=== PATIENT | female | born 1955 | race Caucasian/White ===

== ENCOUNTER 2021-10-19 17:27 | Inpatient (IN) | payer MEDICAID, SELFPAY ==
[2021-10-19] VITALS (11 sets, daily range): BP systolic 112–164; BP diastolic 61–84; PULSE 59–100; RESP 12–20; TEMP 36.3–43; O2SAT 93–97; BMI 26.6; BMI 25.4
--- NOTE | 2021-10-19 17:21 | PC.NURSE ---
EMS reports pt had 100mcg Fentanyl in route to ED
--- NOTE | 2021-10-19 17:26 | XR_ITS ---
PROCEDURE INFORMATION: Exam: XR Left Hip Exam date and time: 10/19/2021 5:26 PM Age: 66 years old Clinical indication: Injury or trauma; Fall; Blunt trauma (contusions or hematomas); Left; Hip; Injury date: 10/19/2021; Additional info: Trauma/fall/left hip pain TECHNIQUE: Imaging protocol: XR Left hip. Views: 2 or 3 views hip with pelvis when performed. Total images: 3 COMPARISON: No relevant prior studies available. FINDINGS: Bones/joints: Intertrochanteric fracture of the left proximal femur demonstrating about 10 mm anterior displacement of the distal fragment on the frog-leg lateral view, with slight posterior angulation and about 7 mm impaction at the anterolateral margin of the fracture interface. Greater trochanteric fracture fragment, displaced about 5 mm. No pelvic/acetabular fractures are identified. Suspect osteopenia. Soft tissues: No soft tissue abnormalities. IMPRESSION: 1. Intertrochanteric fracture of the left proximal femur as detailed above. 2. Mildly displaced greater trochanteric fracture component. 3. Suspect osteopenia.
--- NOTE | 2021-10-19 17:26 | XR_ITS ---
PROCEDURE INFORMATION: Exam: XR Chest Exam date and time: 10/19/2021 5:26 PM Age: 66 years old Clinical indication: Injury or trauma; Fall; Blunt trauma (contusions or hematomas); Injury date: 10/19/2021; Additional info: Fall/trauma/left hip pain TECHNIQUE: Imaging protocol: XR of the chest. Views: 1 view. Total images: 2 COMPARISON: No relevant prior studies available. FINDINGS: Lungs: Mild hyperexpansion and hyperlucency with mild diaphragmatic flattening suggesting possible COPD. Pulmonary vasculature grossly normal. No gross pulmonary infiltrates or edema pattern. Pleural spaces: No pleural effusion. No pneumothorax. Heart/Mediastinum: Heart size normal. No tracheal/mediastinal shift. Vasculature: Mild aortic ectasia/tortuosity. Bones/joints: No acute osseous abnormalities are identified. Osteopenia. IMPRESSION: 1. No acute thoracic process. 2. Suspect COPD.
--- NOTE | 2021-10-19 18:03 | PC.NURSE ---
speaking with ortho, Dr Lindsay, at this time
--- NOTE | 2021-10-19 18:07 | CT_ITS ---
PROCEDURE INFORMATION: Exam: CT Left Lower Extremity Without Contrast, Hip Exam date and time: 10/19/2021 6:07 PM Age: 66 years old Clinical indication: Injury or trauma; Fall; Fracture, traumatic; Closed fracture; Hip; Left; Additional info: Hip fracture TECHNIQUE: Imaging protocol: CT of the Left lower extremity without contrast was performed. Exam focused on the hip. 3D rendering (Not supervised by radiologist): MIP and/or 3D reconstructed images were created by the technologist. Total images: 725 Radiation optimization: All CT scans at this facility use at least one of these dose optimization techniques: automated exposure control; mA and/or kV adjustment per patient size (includes targeted exams where dose is matched to clinical indication); or iterative reconstruction. COMPARISON: CR XR HIP LT 2-3V W/PELVIS 10/19/2021 5:37 PM FINDINGS: Bones/joints: Intertrochanteric fracture of the left proximal femur. There is 8 mm impaction at the inferior medial margin of the fracture interface, with mild varus angulation and mild-moderate apex anterior angulation on the sagittal reconstructions. Greater trochanteric fragment demonstrates about 6 mm posterior displacement. Nondisplaced lesser trochanteric fracture component noted on the coronal reconstructions. No pelvic/acetabular fractures. The pubic symphysis and left SI joint demonstrates no evidence of traumatic diastasis, with minor osteoarthritic changes. Soft tissues: No soft tissue hematoma. Vasculature: No gross vascular abnormalities. Lymph nodes: No adenopathy. Urinary bladder: Visualized urinary bladder unremarkable. IMPRESSION: 1. Intertrochanteric fracture of the left proximal femur detailed above, with mildly displaced greater trochanteric fracture and nondisplaced lesser trochanteric fracture components. 2. No pelvic/acetabular fractures. 3. No soft tissue hematoma.
--- NOTE | 2021-10-19 18:09 | PC.NURSE ---
speaking with Dr Mcknight whom is covering for service.
--- NOTE | 2021-10-19 18:11 | PC.NURSE ---
Notified Unit Assistant of need for bed for admission.
--- NOTE | 2021-10-19 18:22 | [facility].EDFALL ---
ED Disposition Clinical Impression: Closed left hip fracture Qualifiers: Encounter type: initial encounter Qualified Code(s): S72.002A - Fracture of unspecified part of neck of left femur, initial encounter for closed fracture Disposition: Admitted As Inpatient Condition on Discharge: Fair Referrals: Martha Renee [Primary Care Provider] - - Critical Care Critical Care Time: No Attestation: On 10/19/21, the high probability of a clinically significant, sudden or life threatening deterioration of the following system(s) required my full and direct attention, intervention and personal management. The time I documented below is in addition to time spent performing reported procedures but includes the following listed in this critical care notation. Medical Decision Making - Medical Records Medical records reviewed: Yes: I reviewed the patient's medical records. - Tony Inquiry Pt receiving controlled substance: Yes Tony was queried for this patient: Yes Reference #:: [id number] Risks and benefits of using a controlled substance: were discussed with pt by me Vital Signs: 10/19/21 17:21 Temperature 98.1 F Temperature Source Oral Pulse Rate [Right Radial] 61 Respiratory Rate 12 Blood Pressure [Right Arm] 139/84 Blood Pressure Mean [Right Arm] 102 Blood Pressure Source [Right Arm] Automatic Cuff Blood Pressure Position [Right Arm] Sitting 02 Sat by Pulse Oximetry 97 Oxygen Delivery Method Room Air Orders (Tests/Meds): ED MEDICATIONS Discontinued Medications Generic Name Dose Route Start Last Admin Trade Name Freq PRN Reason Stop Dose Admin Hydromorphone HCl 1 mg 10/19/21 18:00 10/19/21 18:21 Hydromorphone 2mg/Ml Syringe IV 10/19/21 18:01 1 mg ONCE ONE Administration Ondansetron HCl 4 mg 10/19/21 18:16 10/19/21 18:21 Ondansetron 4mg/2ml Vial IV 10/19/21 18:17 4 mg ONCE ONE Administration ORDERS Category Date Time Status CT hip LT wo con Stat Cat Scan 10/19/21 18:07 Ordered Consult to Orthopedic Surgery [CONS] Stat Cons 10/19/21 18:07 Ordered Hip XR left minimum 2 views [XR hip LT 2-3V w/pelvis] Exams 10/19/21 17:26 Taken Stat XR chest portable Stat Exams 10/19/21 17:26 Taken BMP [Basic Metabolic Panel] Stat Lab 10/19/21 17:26 Ordered Complete Blood Count Auto Diff Stat Lab 10/19/21 17:25 Ordered PTT [Activated Partial Thrombo Time] Stat Lab 10/19/21 17:26 Ordered Prothrombin Time INR Stat Lab 10/19/21 17:26 Ordered Rapid PCR Covid and Flu A/B Stat Lab 10/19/21 17:26 Ordered - Radiology Data #1 Image(s): Hip Image Reviewed: Yes I reviewed the patient's radiology results, Yes I reviewed the patient's radiology image Intertrochanteric fracture of the left hip - Reevaluation(s) Time: 18:26 Reevaluation #1: Patient has evidence of left hip fracture. I did notify orthopedic surgery. They are reviewed the imaging. Requesting CT. Patient will be made n.p.o. Prep for surgery tonight. Patient admitted to the hospital afterwards. Medical Decision Narrative: 66-year-old female presented to the emergency department with some left hip pain after fall. There is concern for fracture. Patient provided analgesics. Imaging obtained. Fall HPI - General Chief Complaint: Fall Stated Complaint: Fall Time Seen by Provider: 10/19/21 17:30 Mode of Arrival: EMS Limitations: No Limitations Description of Symptoms (Recalled from ER Triage Doc. by RN): Pt fell at home after tripping over some fence wire. C/O left hip pain. External rotation and shortening of the LLE noted. - History of Present Illness HPI Narrative: Is a 66-year-old female presented to the emergency department with some left hip pain. The patient states that she tripped over some wire fencing and landed on her left side. She complaining of some significant pain in her left hip. She is unable to move it secondary to the pain. Patient did not sustain any other injuries. She
[2021-10-19 18:48] LABS: Coronavirus 19, PCR Not Detected (NotDetected); Influenza A, PCR Not Detected (NotDetected); Influenza B, PCR Not Detected (NotDetected)
[2021-10-19 18:53] LABS: Basophils # 0.1 K/mm3 (0-0.2); Basophils % 0.6 % (0.1-2.0); Eosinophils # 0.1 K/mm3 (0.0-0.4); Eosinophils % 0.5 % (0.1-12.0); Hematocrit 38.2 % (37.0-47.0); Hemoglobin 12.8 g/dL (12.2-16.2); Lymphocytes # 1.8 K/mm3 (0.7-4.5); Lymphocytes % 14.6 % (10-50); Mean Corpuscular HGB Conc 33.4 g/dL (31.8-35.4); Mean Corpuscular Hemoglobin 32.4 pg (27.0-31.2); Mean Platelet Volume 8.6 fl (7.4-10.4); Monocytes # 0.5 K/mm3 (0.1-1.0); Monocytes % 3.8 % (1.7-9.3); Neutrophils % 80.6 % (37.0-80.0); Platelet Count 323 K/mm3 (142-424); Red Blood Count 3.94 M/mm3 (4.20-5.40); Red Cell Distribution Width 12.6 % (11.5-17.5); White Blood Count 12.4 K/mm3 (4.8-10.8)
[2021-10-19 19:09] LABS: Chloride 102 mmol/L (98-107); Sodium 135 mmol/L (136-145)
[2021-10-19 19:10] LABS: Potassium 3.9 mmoL/L (3.5-5.1)
[2021-10-19 19:13] LABS: Anion Gap 9.9 mEq/L (5-15); Blood Urea Nitrogen 23 mg/dl (7-17); Calcium 9.2 mg/dl (8.4-10.2); Carbon Dioxide 27 mmol/L (22.0-30.0); Creatinine Clearance Estimated 65 mL/min (50-200); Estimated Glomerular Filt Rate 101 ml/min (>60); GFR (African American) 122 ML/MIN (>60); Glucose 123 mg/dl (74-100)
[2021-10-19 19:15] LABS: Activated Partial Thrombo Time 20.6 seconds (22.8-30.6); INR 0.96 (0.9-1.1); Prothrombin Time 10.9 seconds (10.1-12.5)
--- NOTE | 2021-10-19 19:58 | PC.NURSE ---
Dr. Mcknight at bedside
--- NOTE | 2021-10-19 20:26 | [facility]H.HP ---
*Admission Date: 10/19/21 *Chief complaint: fall - *History of present illness: this patient Pt fell at home after tripping over some fence wire. C/O left hip pain. External rotation and shortening of the LLE noted. a 66-year-old female presented to the emergency department with some left hip pain. The patient states that she tripped over some wire fencing and landed on her left side. She complaining of some significant pain in her left hip. She is unable to move it secondary to the pain. Patient did not sustain any other injuries. She denies any headache or change in vision. No focal weakness. No vomiting or vomiting. No chest pain or shortness of breath. pt was found to have lt hip fracture in the ed and was admitted and will go to or for surg -pt reports htn and on steroids for giant cell arteritis- [facility] History I have reviewed the patient's past medical history: Yes *Have you ever received a pneumonia vaccine?: No *Have you received a flu vaccine this season?: No - *Social History Smoking Status: Former smoker Alcohol Intake: current Alcohol Intake Frequency:: holidays/special occasions only Substance Use Type: denies use *Occupational Status:: retired *Travel in the last 8 weeks: None Family Hx:: No significant family history Review of Systems - Review of Systems Review of systems:: pertinent systems reviewed and negative unless documented below - Constitutional Denies fever(s) - Eyes Denies change in vision - ENT Denies sore throat - *Cardiovascular Denies chest pain - *Respiratory Denies cough - *Gastrointestinal Denies abdominal pain - *Genitourinary Denies blood in urine - *Musculoskeletal Reports joint pain, Reports limited joint movement - Integumentary/Breasts Denies rash - *Neurologic Denies headache(s), Denies seizure-like activity - Psychiatric Denies confusion Meds Home Medications Medication Instructions Recorded Confirmed Type Cholecalciferol (Vitamin D3) 2,000 unit PO DAILY 10/20/21 10/20/21 History [Vitamin D3 1,000 Unit Cap] Famotidine [Pepcid] 20 mg PO BID 10/20/21 10/20/21 History Loratadine [Allergy Relief] 10 mg PO DAILY PRN 10/20/21 10/20/21 History Losartan Potassium 50 mg PO DAILY 10/20/21 10/20/21 History Tocilizumab [Actemra Actpen] 0.9 ml SQ QOW 10/20/21 10/20/21 History hydroCHLOROthiazide 12.5 mg PO DAILY 10/20/21 10/20/21 History [Hydrochlorothiazide 12.5mg Tab] Allergies Allergy/AdvReac Type Severity Reaction Status Date / Time iodine Allergy Verified 10/19/21 18:14 Exam Vital signs and Labs for Last 24 Hours: Temp Pulse Resp BP Pulse Ox 98.1 F 73 16 164/78 H 95 10/19/21 17:21 10/19/21 20:00 10/19/21 20:00 10/19/21 20:00 10/19/21 20:00 Laboratory Results - last 24 hr 10/19/21 18:40: WBC 12.4 H, RBC 3.94 L, Hgb 12.8, Hct 38.2, MCV 97.0, MCH 32.4 H, MCHC 33.4, RDW 12.6, Plt Count 323, MPV 8.6, Neut % (Auto) 80.6 H, Lymph % (Auto) 14.6, [place] % (Auto) 3.8, Eos % (Auto) 0.5, Baso % (Auto) 0.6, Neut # (Auto) 10.0 H, Lymph # (Auto) 1.8, [place] # (Auto) 0.5, Eos # (Auto) 0.1, Baso # (Auto) 0.1 10/19/21 18:40: PT 10.9, INR 0.96, APTT 20.6 L 10/19/21 18:40: Sodium 135 L, Potassium 3.9, Chloride 102, Carbon Dioxide 27, Anion Gap 9.9, BUN 23 H, Creatinine 0.60, Estimated Creat Clear 65, Estimated GFR 101, Est GFR ( Amer) 122, Glucose 123 H, Calcium 9.2 10/19/21 18:40: SARS-CoV-2 (PCR) Not detected, Influenza A Untype (PCR) Not detected, Influenza Type B (PCR) Not detected I & O for Last 24 hours: Intake & Output 10/17/21 10/18/21 10/19/21 10/20/21 11:59 11:59 11:59 11:59 Weight 160 lb - Constitutional no acute distress - *Routine HEENT Exam Head: Present: normocephalic Eye: Present: EOMI, PERRL ENT: Present: mucous membranes dry, other (no current temp art pain) - *Routine Neck Exam Absent: JVD - *Routine Respiratory Exam Present: CTA bilaterally - *Routine Cardiovascular Exam Present: RRR,
--- NOTE | 2021-10-19 21:33 | HMH.ORTHOCON ---
*Admission Date: 10/19/21 *Reason for consult:: Left intertrochanteric femur fracture *History of present illness: 66-year-old female fell when she tripped trying to step over an electric fence, complained of left hip pain and inability to ambulate. She is transported to the emergency department via ambulance and radiographs and CT scan demonstrated left intertrochanteric femur fracture for which I was consulted. She has been n.p.o. [facility] History Medical History: Denies:: Coronary Artery Disease *Have you ever received a pneumonia vaccine?: No *Have you received a flu vaccine this season?: No Other Medical History: Denies: Anemia Other Surgeries: No: Other - *Social History Smoking Status: Never smoker Alcohol Intake: never *Occupational Status:: retired *Travel in the last 8 weeks: Inside the [place] Family Hx:: No significant family history Review of Systems - Constitutional Denies lack of energy - Eyes Denies blind spots - ENT Denies abnormal hearing - *Cardiovascular Denies chest pain - *Respiratory Denies shortness of breath - *Gastrointestinal Denies abdominal pain - *Genitourinary Denies urinary urgency - *Musculoskeletal Reports joint pain - Integumentary/Breasts Denies non-healing lesions - *Neurologic Denies abnormal walking, Denies headache(s) - Psychiatric Denies abnormal sleep pattern - Endocrine Denies cold intolerance - Hematologic/Lymphatic Denies easy bleeding Meds Allergies Allergy/AdvReac Type Severity Reaction Status Date / Time iodine Allergy Verified 10/19/21 18:14 Exam Vital signs and Labs for Last 24 Hours: Temp Pulse Resp BP Pulse Ox 98.1 F 69 16 156/83 H 95 10/19/21 20:31 10/19/21 20:31 10/19/21 20:31 10/19/21 20:31 10/19/21 20:00 Laboratory Results - last 24 hr 10/19/21 18:40: WBC 12.4 H, RBC 3.94 L, Hgb 12.8, Hct 38.2, MCV 97.0, MCH 32.4 H, MCHC 33.4, RDW 12.6, Plt Count 323, MPV 8.6, Neut % (Auto) 80.6 H, Lymph % (Auto) 14.6, [place] % (Auto) 3.8, Eos % (Auto) 0.5, Baso % (Auto) 0.6, Neut # (Auto) 10.0 H, Lymph # (Auto) 1.8, Wise # (Auto) 0.5, Eos # (Auto) 0.1, Baso # (Auto) 0.1 10/19/21 18:40: PT 10.9, INR 0.96, APTT 20.6 L 10/19/21 18:40: Sodium 135 L, Potassium 3.9, Chloride 102, Carbon Dioxide 27, Anion Gap 9.9, BUN 23 H, Creatinine 0.60, Estimated Creat Clear 65, Estimated GFR 101, Est GFR ( Amer) 122, Glucose 123 H, Calcium 9.2 10/19/21 18:40: SARS-CoV-2 (PCR) Not detected, Influenza A Untype (PCR) Not detected, Influenza Type B (PCR) Not detected I & O for Last 24 hours: Intake & Output 10/16/21 10/17/21 10/18/21 10/19/21 23:59 23:59 23:59 23:59 Weight 160 lb - Constitutional no acute distress - *Routine HEENT Exam Head: Present: normocephalic Eye: Present: EOMI, PERRL ENT: Present: mucous membranes moist - *Routine Neck Exam Present: supple. Absent: lymphadenopathy - *Routine Respiratory Exam Present: CTA bilaterally - *Routine Cardiovascular Exam Present: RRR - *Routine Abdominal Exam Present: soft, normoactive bowel sounds. Absent: tenderness - *Routine Rectal Exam Rectal:: deferred - *Routine Genitalia Exam Genitalia:: deferred - *Routine Extremities Exam Absent: cyanosis, clubbing, edema - *Routine Skin Exam Present: warm. Absent: rash - *Routine Neurological Exam Present: alert, oriented X3 - Detailed Lower Extremity Exam Hip: Left shortening of the leg (Left lower extremity short, pain with any attempted logroll. Distally neurovascularly intact.) Results - Labs Result Diagrams: 10/19/21 18:40 10/19/21 18:40 Labs: Abnormal lab results 10/19/21 10/19/21 10/19/21 Range/Units 18:40 18:40 18:40 WBC 12.4 H (4.8-10.8) K/mm3 RBC 3.94 L (4.20-5.40) M/mm3 MCH 32.4 H (27.0-31.2) pg Neut % (Auto) 80.6 H (37.0-80.0) % Neut # (Auto) 10.0 H (1.8-7.8) K/mm3 APTT 20.6 L (22.8-30.6) seconds Sodium 135 L (136-145) mmol/L
--- NOTE | 2021-10-19 22:02 | HMH.ANESCL ---
[facility] Anesthesia Checklist - Structural Data Admitted From: Emergency Dept Planned Operative Procedure/s: orif l hip Consent for Planned Operative Procedure(s) Verified: Yes - Airway Assessment C-Spine Mobility Assessed: Yes TMJ Mobility Assessed: Yes Dentition: Good Dentition - Neurological Assessment Level of Consciousness: Awake, Alert, Appropriate - Anesthesia Plan Anesthesia Risk discussed: Yes Anesthesia Plan: Verified ASA Class: II Anesthesia Type: MAC w/Spinal [facility] History I have reviewed the patient's past medical history: Yes Medical History: Denies:: Coronary Artery Disease *Have you ever received a pneumonia vaccine?: No *Have you received a flu vaccine this season?: No Other Medical History: Denies: Anemia Anesthesia experience/problems:: none Other Surgeries: No: Other - *Social History Smoking Status: Never smoker Alcohol Intake: never Substance Use Type: denies use *Occupational Status:: retired *Travel in the last 8 weeks: Inside the [facility] Family Hx:: No significant family history
--- NOTE | 2021-10-19 23:03 | XR_ITS ---
PROCEDURE: XR HIP LT 2-3V W/PELVIS CLINICAL INDICATION: Hip fracture COMPARISON: No exams were available for comparison FINDINGS: Fluoroscopy time: Not made available. Multiple images submitted with C-arm demonstrates gamma nail insertion with intramedullary mora with good alignment the prosthesis and fracture fragments on the final images submitted. IMPRESSION: Status post ORIF left hip fracture with fluoroscopic assistance Dictated by: Amilcar Thomas MD 10/25/2021 07:37 Amilcar Thomas MD in OV 10/25/2021 07:37
--- NOTE | 2021-10-19 23:17 | HMH.ANESI ---
[facility] Anesthesia Record Part I Intake, IV Amount: 1,000 Estimated blood loss (mL): 100 Urine output (mL): 250 Blood Pressure: 118/61 SaO2: 96 Pulse Rate: 90 Respiratory Rate: 12 Temperature: 98.4 F Patient is:: Awake, Stable Stable to PACU at:: 23:10
--- NOTE | 2021-10-19 23:41 | HMH.OPNOTE ---
Date of procedure: 10/19/21 Pre-op Diagnosis:: Left intertrochanteric femur fracture Post-op Diagnosis:: Same Procedure performed:: Cephalomedullary nail fixation left intertrochanteric femur fracture: 23708 Surgeon:: Mumtaz Lindsay JR, MD ASSEMBLER ENGINE:: Trey Foss Anesthesia: GETA Estimated blood loss (mL): 100 Operative findings:: Appropriate fracture reduction with safe intraosseous hardware placement, appropriate tip apex distance. Operative note:: 66-year-old female sustained a left intertrochanteric femur fracture as a result of falling over a fence. She presented to the emergency department, was admitted by the medicine team. I had a discussion with her and her regarding treatment of this unstable fracture. I recommended cephalomedullary nail fixation to stabilize the fracture, promote healing, and allow for early weightbearing. They were amenable with the plan. Plan for left cephalomedullary nail fixation intertrochanteric femur fracture. We discussed the risk and benefits of surgery. Risks included but were not limited to pain, bleeding, infection, damage to adjacent structures, need for further surgery, wound healing complications, loss of limb, . Patient expressed verbal consent and written consent was obtained for the above procedure. Patient was identified in preoperative holding. Operative site was marked in indelible ink. History, physical, consent were reviewed and updated. Patient was surrendered to the anesthesia team, taken to the operative suite. The patient was secured onto the fracture table with a belt and tape across the arms and upper chest area. Anesthesia was induced. A perineal post had been placed. The operative extremity was secured down and longitudinal traction applied through the post. The contralateral extremity was secured with pillow and bartolo wrap to arm. C-arm fluoroscopy was then brought in to check fracture alignment, and it was found to be acceptable on AP and lateral views. The operative extremity was prepped and draped in the usual sterile fashion. The operative team donned sterile gowns and gloves and a timeout was called. All in attendance agreed regarding the patient's identity, procedure, operative site. Weight-based dose of antibiotics was given prior to incision. A stab wound incision was made proximal to the tip of the greater trochanter and a Steinmann pin placed on the tip of the greater trochanter, localizing it on AP and lateral views to be in the center. This was placed down into the femur to the level of the lesser trochanter. The knife was used to enlarge the opening proximally and a guide placed over the pin down to the tip of the greater trochanter. The drill was used through the guide to open the greater trochanter. A ball-tipped guidewire was placed in the canal was reamed to appropriate diameter. The cephalomedullary nail was advanced over the guidewire to appropriate position. The placement was checked on AP and lateral views. The triple sleeve cannula was then placed through the guide connected onto the insertion handle. This was placed against the skin and then an incision made through the skin and fascia down onto bone. The cannula was then placed down until it was flush on the bone. The guide pin was drilled up into the center of the femoral head on AP and lateral views. The inner sleeve was then removed, and the length of the blade was measured. Step reamer was advanced to appropriate depth over the wire. A 10.5 mm lag screw of appropriate length was placed with tip apex distance less than 20 mm. Attention was then turned proximally, and the flexible screwdriver was used to tighten down the proximal screw to the lag screw. The distal screws and cannulas were then placed through the targeting device and a small incision made through the skin and fascia allowing it to be placed flush against bone. Drill was used to drill through both cortices. An interlocking bolt
--- NOTE | 2021-10-19 23:52 | PC.NURSE ---
PT ARRIVED TO FLOOR VIA BED W/OR STAFF @ [id number].
[2021-10-20] VITALS (18 sets, daily range): BP systolic 109–157; BP diastolic 63–84; PULSE 69–85; RESP 14–18; TEMP 36.5–37.9; O2SAT 92–98
--- NOTE | 2021-10-20 00:44 | HMH.ORTHPN ---
Subjective Date: 10/20/21 Time: 00:45 Interval history: Resting comfortably. No fever or constitutional symptoms. PN: Obj Ex Vital signs: Temp Pulse Resp BP Pulse Ox 97.7 F 80 15 135/78 95 10/20/21 00:00 10/20/21 00:00 10/20/21 00:00 10/20/21 00:00 10/20/21 00:00 - Constitutional no acute distress - Routine HEENT Exam Head: Present: normocephalic, atraumatic - Routine Respiratory Exam Absent: respiratory distress - Routine Cardiovascular Exam Present: RRR - Detailed Lower Extremity Exam Hip: Left wound hip (Left hip dressing clean, dry, intact. Distally neurovascularly intact.) - Urinary Catheter Management Bashir Cath placed during this visit: no Progress Note: A&P (1) Closed left hip fracture Problem details: 66-year-old female with left intertrochanteric femur fracture status post cephalomedullary nail fixation. Protected weightbearing as tolerated left lower extremity. PT/OT. 23 hours antibiotics. DVT prophylaxis. Will follow. Status: Acute
--- NOTE | 2021-10-20 01:48 | PC.NURSE ---
[employer] paged at this time ([phone]) regarding cefazolin dosing and timing. Received report from OR Nurse that patient had received Cefazolin at 2122. ordered 2 bag post-op Twyla from [employer] retimed dosing for 8 hours after first dose given at 2122. [employer] also is D/C duplicate orders.
--- NOTE | 2021-10-20 03:03 | HMH.PHAVTE ---
[facility] Pharmacy VTE Monitoring - Patient Demographics Admission date: 10/20/21 Report Date: 10/20/21 Time: 03:03 Allergies/Adverse Reactions: Patient Allergies iodine Allergy (Verified 10/19/21 18:14) Height: 1.65 m Weight: 69.4 kg Patient Problems: Current Active Problems Closed left hip fracture (Acute) - VTE Risk Labs: VTE Related Lab Results Hgb 12.8 g/dL (12.2-16.2) 10/19/21 18:40 Hct 38.2 % (37.0-47.0) 10/19/21 18:40 Plt Count 323 K/mm3 (142-424) 10/19/21 18:40 PT 10.9 seconds (10.1-12.5) 10/19/21 18:40 INR 0.96 (0.9-1.1) 10/19/21 18:40 APTT 20.6 seconds (22.8-30.6) L 10/19/21 18:40 BUN 23 mg/dl (7-17) H 10/19/21 18:40 Creatinine 0.60 mg/dl (0.52-1.04) 10/19/21 18:40 Estimated Creat Clear 65 mL/min (50-200) 10/19/21 18:40 Was VTE Risk Assessment Performed: Yes VTE Score: 5 VTE Risk Level: Low Risk Clinical Trial Participant: No - Prophylaxis VTE Prophylaxis Ordered?: Yes Types of VTE Prophylaxis: IPCS Knee High, Pharmacological Location of Applied Device: Right Leg Pharmacologic Type: Enoxaparin (POSTOP)
--- NOTE | 2021-10-20 05:35 | PC.NURSE ---
Patient has had complaints of pain of 9-10/10. Patient's tolerable pain level is a 4-5/10. Patient is currently at a 4 at this time. Patient has SCUD on right extremity and an ice pack placed on the left hip.
[2021-10-20 08:35] LABS: Basophils % 0.2 % (0.1-2.0); Eosinophils % 0.3 % (0.1-12.0); Hematocrit 34.6 % (37.0-47.0); Lymphocytes # 1.7 K/mm3 (0.7-4.5); Lymphocytes % 14.3 % (10-50); Mean Corpuscular HGB Conc 32.5 g/dL (31.8-35.4); Mean Corpuscular Hemoglobin 32.2 pg (27.0-31.2); Mean Corpuscular Volume 98.8 fl (81-99); Mean Platelet Volume 8.4 fl (7.4-10.4); Monocytes # 0.7 K/mm3 (0.1-1.0); Monocytes % 5.6 % (1.7-9.3); Neutrophils # 9.4 K/mm3 (1.8-7.8); Neutrophils % 79.5 % (37.0-80.0); Platelet Count 266 K/mm3 (142-424); Red Cell Distribution Width 12.8 % (11.5-17.5); White Blood Count 11.8 K/mm3 (4.8-10.8)
[2021-10-20 08:39] LABS: Hemoglobin 11.3 g/dL (12.2-16.2)
[2021-10-20 08:44] LABS: Chloride 99 mmol/L (98-107); Potassium 3.7 mmoL/L (3.5-5.1); Sodium 133 mmol/L (136-145)
[2021-10-20 08:47] LABS: Anion Gap 10.7 mEq/L (5-15); Blood Urea Nitrogen 21 mg/dl (7-17); Calcium 8.7 mg/dl (8.4-10.2); Carbon Dioxide 27 mmol/L (22.0-30.0); Creatinine Clearance Estimated 62 mL/min (50-200); Estimated Glomerular Filt Rate 101 ml/min (>60); GFR (African American) 122 ML/MIN (>60); Glucose 133 mg/dl (74-100)
--- NOTE | 2021-10-20 09:07 | HMH.PHAINT ---
Addendum entered and electronically signed by Yodit Marques (Student) 10/20/21 09:08: *Not [facility] pharmacy, [facility] confirmed home medications. Original Note: Confirmed patients home medications with [facility]
--- NOTE | 2021-10-20 10:37 | P.PN_ITS ---
Internal Medicine - PN: Subj *Date: 10/20/21 *Time: 22:48 Interval history: pt doing ok has pain - ortho note reviewed Exam Vital signs and Labs for Last 24 Hours: Temp Pulse Resp BP Pulse Ox 98.5 F 77 16 118/63 95 10/20/21 08:00 10/20/21 08:00 10/20/21 08:00 10/20/21 08:00 10/20/21 08:00 Laboratory Results - last 24 hr 10/19/21 18:40: WBC 12.4 H, RBC 3.94 L, Hgb 12.8, Hct 38.2, MCV 97.0, MCH 32.4 H , MCHC 33.4, RDW 12.6, Plt Count 323, MPV 8.6, Neut % (Auto) 80.6 H, Lymph % (Auto) 14.6, [place] % (Auto) 3.8, Eos % (Auto) 0.5, Baso % (Auto) 0.6, Neut # (Auto) 10.0 H, Lymph # (Auto) 1.8, [place] # (Auto) 0.5, Eos # (Auto) 0.1, Baso # (Auto) 0.1 10/19/21 18:40: PT 10.9, INR 0.96, APTT 20.6 L 10/19/21 18:40: Sodium 135 L, Potassium 3.9, Chloride 102, Carbon Dioxide 27, Anion Gap 9.9, BUN 23 H, Creatinine 0.60, Estimated Creat Clear 65, Estimated GFR 101, Est GFR ( Amer) 122, Glucose 123 H, Calcium 9.2 10/19/21 18:40: SARS-CoV-2 (PCR) Not detected, Influenza A Untype (PCR) Not detected, Influenza Type B (PCR) Not detected 10/20/21 07:58: WBC 11.8 H, RBC 3.50 L, Hgb 11.3 L D, Hct 34.6 L, MCV 98.8, MCH 32.2 H, MCHC 32.5, RDW 12.8, Plt Count 266, MPV 8.4, Neut % (Auto) 79.5, Lymph % (Auto) 14.3, [place] % (Auto) 5.6, Eos % (Auto) 0.3, Baso % (Auto) 0.2, Neut # (Auto) 9.4 H, Lymph # (Auto) 1.7, [place] # (Auto) 0.7, Eos # (Auto) 0.0, Baso # (Auto) 0.0 10/20/21 07:58: Sodium 133 L, Potassium 3.7, Chloride 99, Carbon Dioxide 27, Anion Gap 10.7, BUN 21 H, Creatinine 0.60, Estimated Creat Clear 62, Estimated GFR 101, Est GFR ( Amer) 122, Glucose 133 H, Calcium 8.7 I & O for Last 24 hours: Intake & Output 10/17/21 10/18/21 10/19/21 10/20/21 11:59 11:59 11:59 11:59 Intake Total 1000 / 1000 Output Total 200 / 200 Balance 800 / 800 Weight 153 lb - Constitutional no acute distress - *Routine HEENT Exam Head: Present: normocephalic Eye: Present: EOMI, PERRL ENT: Present: mucous membranes dry - *Routine Neck Exam Absent: JVD - *Routine Respiratory Exam Present: CTA bilaterally - *Routine Cardiovascular Exam Present: RRR - *Routine Abdominal Exam Present: soft - *Routine Extremities Exam Absent: calf tenderness - *Routine Skin Exam Present: intact - *Routine Neurological Exam Present: alert, CN II-XII intact - Routine Psychiatric Exam Present: normal affect
--- NOTE | 2021-10-20 16:23 | HMH.PTEV ---
Physical Therapy Evaluation Rehab PT IP Evaluation Start: 10/20/21 00:04 Freq: ONCE Status: Active Protocol: Document 10/20/21 16:20 PHORNE (Rec: 10/20/21 16:23 PHORNE [id number]) Subjective/History History History 66 yowf adm to [facility] after fall at home wit hL hip fx, now S/P L femur IMN. Pt reports she lives with spouse, no steps to enter and was independent with all mobility prior to adm . Subjective Subjective Pt reports 1/10 pain at rest, but this increased with movement. Some N/V noted as well. Rehab PT IP Eval Objective Appearance Patient Behavior Appropriate Patient Orientation Person,Place,Time Difficulty following instructions none Speech Pattern Clear Ambulation Patient Able to Ambulate Yes Ambulation Observation IP General Gait Pattern Observation Antalgic Gait,Shuffling Step Ambulation Distance (feet) 3 Ambulation Assistive Device Rolling Walker Ambulation Ability Minimal x 1 (25% assist) Balance Ability to Arise Able, uses arms to help Sitting Balance Steady, safe Standing Balance Steady, wide stance Dynamic Sitting Balance Ability Good Dynamic Standing Balance Ability Fair Transfers Bed Transfer Ability Minimal x 1 (25% assist) Chair Transfer Ability Minimal x 1 (25% assist) Sit to Stand Bed Transfer Ability Minimal x 1 (25% assist) Sit to Stand Chair Transfer Ability Minimal x 1 (25% assist) Rehab PT IP prob,goals,plan Problems Date of Evaluation: 10/20/21 PT IP Problems Bed Mobility,Transfers,Gait Rehab Potential Rehab Potential Good Equipment Needs Assistive Devices Rolling / Wheeled Walker Plan PT Intervention Plan Bed Mobility,Transfers,Gait, Self care,Therapeutic Exercise PT Plan Frequency BID Duration LOS Discharge Goals Bed Transfer Ability Contact Guard/Hand Hold Sit to Stand Chair Transfer Ability Contact Guard/Hand Hold Ambulation Assistive Device Rolling Walker Ambulation Distance (feet) 30 Discharge Plan PT Discharge Plan Pt is appropriate to return home once medically stable if family can provide some assist . G -code Required No Eval Complexity Eval Charge Codes 30994 - Moderate Complexity
--- NOTE | 2021-10-20 18:11 | PC.NURSE ---
PT TOLERATED AMBULATING TO CHAIR FROM BED WITH THERAPY. SHE HAS BEEN TREATED FOR PAIN THIS SHIFT PER JAN. 2 EPISODES OF N/V THIS SHIFT. SHE WAS TREATED WITH PRN ZOFRAN WITH ONLY MODERATE RELIEF. ORDER FOR 12.5 PROMETHAZINE OBTAINED FOR N/V FROM DR TOVAR.
[2021-10-21] VITALS: BP 133/65; PULSE 80; RESP 17; TEMP 37.6; O2SAT 95
--- NOTE | 2021-10-21 03:52 | PC.NURSE ---
A&OX4. TOLERATING RA WELL. F/C PRESENT DRAINING DARK YELLOW URINE. PT REPOSITIONED TOLERATED. PT HAS C/O INTERMITTENT PAIN TO L HIP. TX PER JAN. ON REASSESSMENT PT RESTING IN BED. DRESSING TO L HIP CDI. ELEVATED TEMP OF 100.3 AT BEGINNING OF SHIFT. ACTIVE COOLING MEASURES IN PLACE. ON REASSESSMENT, TEMP 99. NO OTHER C/O THUS FAR. VSS WILL CONTINUE TO MONITOR.
[2021-10-21 04:00] VITALS: BP 132/65; PULSE 84; RESP 16; TEMP 37.6; O2SAT 92
[2021-10-21 04:33] VITALS: BMI 27.7
[2021-10-21 07:46] LABS: Basophils # 0.1 K/mm3 (0-0.2); Basophils % 0.4 % (0.1-2.0); Eosinophils # 0.1 K/mm3 (0.0-0.4); Eosinophils % 0.7 % (0.1-12.0); Hematocrit 34.3 % (37.0-47.0); Hemoglobin 11.2 g/dL (12.2-16.2); Lymphocytes # 1.6 K/mm3 (0.7-4.5); Lymphocytes % 14.9 % (10-50); Mean Corpuscular HGB Conc 32.6 g/dL (31.8-35.4); Mean Corpuscular Volume 98.1 fl (81-99); Mean Platelet Volume 7.8 fl (7.4-10.4); Monocytes # 0.7 K/mm3 (0.1-1.0); Monocytes % 6.2 % (1.7-9.3); Neutrophils # 8.4 K/mm3 (1.8-7.8); Neutrophils % 77.8 % (37.0-80.0); Platelet Count 243 K/mm3 (142-424); Red Cell Distribution Width 12.1 % (11.5-17.5); White Blood Count 10.8 K/mm3 (4.8-10.8)
[2021-10-21 07:51] LABS: Chloride 100 mmol/L (98-107); Potassium 3.9 mmoL/L (3.5-5.1); Sodium 135 mmol/L (136-145)
[2021-10-21 07:54] LABS: Anion Gap 6.9 mEq/L (5-15); Blood Urea Nitrogen 13 mg/dl (7-17); Calcium 8.7 mg/dl (8.4-10.2); Carbon Dioxide 32 mmol/L (22.0-30.0); Creatinine Clearance Estimated 68 mL/min (50-200); Estimated Glomerular Filt Rate 101 ml/min (>60); GFR (African American) 122 ML/MIN (>60); Glucose 113 mg/dl (74-100)
[2021-10-21 08:00] VITALS: BP 116/81; PULSE 81; RESP 18; TEMP 37.5; O2SAT 96
--- NOTE | 2021-10-21 09:14 | P.PN_ITS ---
Internal Medicine - PN: Subj *Date: 10/21/21 *Time: 09:14 Interval history: pt feels better today stable vital signs and labs but still with sig pain Exam Vital signs and Labs for Last 24 Hours: Temp Pulse Resp BP Pulse Ox 99.7 F H 84 16 132/65 92 L 10/21/21 04:00 10/21/21 04:00 10/21/21 04:00 10/21/21 04:00 10/21/21 04:00 Laboratory Results - last 24 hr 10/21/21 07:14: WBC 10.8, RBC 3.50 L, Hgb 11.2 L, Hct 34.3 L, MCV 98.1, MCH 32.0 H, MCHC 32.6, RDW 12.1, Plt Count 243, MPV 7.8, Neut % (Auto) 77.8, Lymph % (Auto) 14.9, [place] % (Auto) 6.2, Eos % (Auto) 0.7, Baso % (Auto) 0.4, Neut # (Auto) 8.4 H, Lymph # (Auto) 1.6, [place] # (Auto) 0.7, Eos # (Auto) 0.1, Baso # (Auto) 0.1 10/21/21 07:14: Sodium 135 L, Potassium 3.9, Chloride 100, Carbon Dioxide 32 H, Anion Gap 6.9, BUN 13 D, Creatinine 0.60, Estimated Creat Clear 68, Estimated GFR 101, Est GFR ( Amer) 122, Glucose 113 H, Calcium 8.7 I & O for Last 24 hours: Intake & Output 10/18/21 10/19/21 10/20/21 10/21/21 11:59 11:59 11:59 11:59 Intake Total 1000 / 1000 480 / 480 Output Total 200 / 200 1075 / 1075 Balance 800 / 800 -595 / -595 Weight 153 lb 166 lb 9.6 oz - Constitutional no acute distress - *Routine HEENT Exam Head: Present: normocephalic Eye: Present: EOMI, PERRL ENT: Present: mucous membranes dry - *Routine Neck Exam Present: supple. Absent: JVD - *Routine Respiratory Exam Present: CTA bilaterally - *Routine Cardiovascular Exam Present: RRR, murmur - *Routine Abdominal Exam Present: soft - *Routine Extremities Exam Absent: calf tenderness - *Routine Skin Exam Present: intact - *Routine Neurological Exam Present: alert, oriented X3, CN II-XII intact - Routine Psychiatric Exam Present: normal affect
--- NOTE | 2021-10-21 13:49 | HMH.ORTHPN ---
Subjective Date: 10/21/21 Time: 13:49 Interval history: Resting comfortably. No fever or constitutional symptoms. PN: Obj Ex Vital signs: Temp Pulse Resp BP Pulse Ox 99.5 F 81 18 116/81 96 10/21/21 08:00 10/21/21 08:00 10/21/21 08:00 10/21/21 08:00 10/21/21 08:00 - Constitutional no acute distress - Routine HEENT Exam Head: Present: normocephalic - Routine Respiratory Exam Absent: respiratory distress - Routine Cardiovascular Exam Absent: RRR - Detailed Lower Extremity Exam Hip: Left wound hip (Left lower extremity with dressing clean, dry, intact. Distally neurovascularly intact.) - Urinary Catheter Management Bashir Cath placed during this visit: no Progress Note: A&P (1) Closed left hip fracture Problem details: 66-year-old female with left intertrochanteric femur fracture status post cephalomedullary nail fixation. Protected weightbearing as tolerated left lower extremity. PT/OT. DVT prophylaxis. Will follow. Status: Acute
[2021-10-21 15:08] VITALS: BP 140/53; PULSE 77; RESP 16; TEMP 37.3; O2SAT 94
--- NOTE | 2021-10-21 18:44 | PC.NURSE ---
NO ACUTE CHANGES THIS SHIFT. PT HAS ONLT C/O N/V ONCE THIS SHIFT AND WAS TREATED WITH PRN ZOFRAN WITH GOOD EFFECTIVENESS. SHE SPENT MOST OF THIS SHIFT UP TO CHAIR AND TOLERATED WELL. AMBULATED WITH STANDBY ASSIST AND A WALKER FROM BED TO CHAIR. SHE IS TOLERATING HER DIET WELL. SHE DID C/O PAIN ONCE THIS SHIFT BUT WAS RELIEVED BY 1 TAB 5MG OXYCODONE PER MAR.
[2021-10-21 19:47] VITALS: BP 117/45; PULSE 85; RESP 19; TEMP 37.2; O2SAT 95
[2021-10-22 04:00] VITALS: BP 132/52; PULSE 72; RESP 18; TEMP 37.1; O2SAT 95
[2021-10-22 05:19] VITALS: BMI 27.2
[2021-10-22 08:00] VITALS: BP 118/51; PULSE 75; RESP 20; TEMP 36.9; O2SAT 98
--- NOTE | 2021-10-22 09:22 | SW/DCPLANNER ---
Addendum entered by Marianna Martel 10/22/21 13:15: Patient information/order has been faxed to [facility]: Kya has stated that services will begin this week. Addendum entered by Marianna Martel 10/22/21 10:44: Destiney slater/ Martha stated that rolling walker will be delivered today. I will also set up home health services today. Patient may discharge home later this afternoon. Original Note: I spoke with this patient this AM regarding discharge plans. Patient stated that she resides at home with her and anticipates returning home at time of discharge. Patient is interested in home health services vs outpatient. Patient information/order will also be faxed to [facility] for a rolling walker. I will set up all DME/home health at time of discharge. Patient could potentially discharge later today.
--- NOTE | 2021-10-22 10:20 | PC.NURSE ---
Pt will need a rolling walker, rather than a cane, due to mobility issues.
[2021-10-22 11:09] VITALS: BP 130/81; PULSE 75; TEMP 36.3
--- NOTE | 2021-10-22 11:09 | HMH.ANESII ---
[facility] Anesthesia Record Part II Discharge Time: 23:40 Destination: Medical Surgical Department PACU nurse assessment reviewed?: Yes Patient Condition:: Good Anesthesia Complications:: None Swallowing reflex intact?: Yes Cyanosis?: No Blood Pressure: 130/81 Pulse Rate: 75 Temperature: 97.3 F Mental Status: Alert & Oriented Pain level:: 0 Nausea and/or vomitting:: None Intake, IV Amount: 0
--- NOTE | 2021-10-22 11:12 | HMH.DCSUM ---
General - General Admission date:: 10/19/21 Discharge date: 10/22/21 HPI HPI: this patient Pt fell at home after tripping over some fence wire. C/O left hip pain. External rotation and shortening of the LLE noted. a 66-year-old female presented to the emergency department with some left hip pain. The patient states that she tripped over some wire fencing and landed on her left side. She complaining of some significant pain in her left hip. She is unable to move it secondary to the pain. Patient did not sustain any other injuries. She denies any headache or change in vision. No focal weakness. No vomiting or vomiting. No chest pain or shortness of breath. pt was found to have lt hip fracture in the ed and was admitted and will go to or for surg -pt reports htn and on steroids for giant cell arteritis- Hospital Course Hospital Course: Laboratory Tests 10/19/21 10/19/21 10/19/21 18:40 18:40 18:40 WBC 12.4 H RBC 3.94 L Hgb 12.8 Hct 38.2 MCV 97.0 MCH 32.4 H MCHC 33.4 RDW 12.6 Plt Count 323 MPV 8.6 Neut % (Auto) 80.6 H Lymph % (Auto) 14.6 [place] % (Auto) 3.8 Eos % (Auto) 0.5 Baso % (Auto) 0.6 Neut # (Auto) 10.0 H Lymph # (Auto) 1.8 [place] # (Auto) 0.5 Eos # (Auto) 0.1 Baso # (Auto) 0.1 PT 10.9 INR 0.96 APTT 20.6 L Sodium 135 L Potassium 3.9 Chloride 102 Carbon Dioxide 27 Anion Gap 9.9 BUN 23 H Creatinine 0.60 Estimated Creat Clear 65 Estimated GFR 101 Est GFR ( Amer) 122 Glucose 123 H Calcium 9.2 SARS-CoV-2 (PCR) Influenza A Untype (PCR) Influenza Type B (PCR) 10/19/21 10/20/21 10/20/21 18:40 07:58 07:58 WBC 11.8 H RBC 3.50 L Hgb 11.3 L D Hct 34.6 L MCV 98.8 MCH 32.2 H MCHC 32.5 RDW 12.8 Plt Count 266 MPV 8.4 Neut % (Auto) 79.5 Lymph % (Auto) 14.3 [place] % (Auto) 5.6 Eos % (Auto) 0.3 Baso % (Auto) 0.2 Neut # (Auto) 9.4 H Lymph # (Auto) 1.7 [place] # (Auto) 0.7 Eos # (Auto) 0.0 Baso # (Auto) 0.0 PT INR APTT Sodium 133 L Potassium 3.7 Chloride 99 Carbon Dioxide 27 Anion Gap 10.7 BUN 21 H Creatinine 0.60 Estimated Creat Clear 62 Estimated GFR 101 Est GFR ( Amer) 122 Glucose 133 H Calcium 8.7 SARS-CoV-2 (PCR) Not detected Influenza A Untype (PCR) Not detected Influenza Type B (PCR) Not detected 10/21/21 10/21/21 07:14 07:14 WBC 10.8 RBC 3.50 L Hgb 11.2 L Hct 34.3 L MCV 98.1 MCH 32.0 H MCHC 32.6 RDW 12.1 Plt Count 243 MPV 7.8 Neut % (Auto) 77.8 Lymph % (Auto) 14.9 [place] % (Auto) 6.2 Eos % (Auto) 0.7 Baso % (Auto) 0.4 Neut # (Auto) 8.4 H Lymph # (Auto) 1.6 [place] # (Auto) 0.7 Eos # (Auto) 0.1 Baso # (Auto) 0.1 PT INR APTT Sodium 135 L Potassium 3.9 Chloride 100 Carbon Dioxide 32 H Anion Gap 6.9 BUN 13 D Creatinine 0.60 Estimated Creat Clear 68 Estimated GFR 101 Est GFR ( Amer) 122 Glucose 113 H Calcium 8.7 SARS-CoV-2 (PCR) Influenza A Untype (PCR) Influenza Type B (PCR) Ordering Physician: Derek Washington MD Date of Service: 10/19/21 Procedure(s): XR chest portable Accession Number(s): [id number] cc: Martha Renee John MD~ PROCEDURE INFORMATION: Exam: XR Chest Exam date and time: 10/19/2021 5:26 PM Age: 66 years old Clinical indication: Injury or trauma; Fall; Blunt trauma (contusions or hematomas); Injury date: 10/19/2021; Additional info: Fall/trauma/left hip pain TECHNIQUE: Imaging protocol: XR of the chest. Views: 1 view. Total images: 2 COMPARISON: No relevant prior studies available. FINDINGS: Lungs: Mild hyperexpansion and hyperlucency with mild diaphragmatic flattening suggesting possible COPD. Pulmonary vasculature grossly normal. No gross pulmonary infiltrates or edema
--- NOTE | 2021-10-22 13:19 | PC.NURSE ---
Spoke with staff at Dr. Lindsay's office and Dr. Lindsay wants current dsg to be left in place to L hip and not changed prior to d/c. Pt educated on this and d/cd at approx 1300.
== END 2021-10-22 13:00 | disposition home or self-care (01) | DRG 482 ==
LOC: ER 20:15 → 2ND 10-20 07:35
PROVIDERS: Orthopaedic Surgery; Admitting Provider Emergency Medicine; Emergency Provider Emergency Medicine; PCP General Practice; Visit Provider Emergency Medicine
PROC: 0QS706Z Reposition Left Upper Femur with Intramedullary Internal Fixation Device, Open Approach (ICD-10-PCS; CPT 27245; principal; 2021-10-19 21:00)
DX: S72.142A Displaced intertrochanteric fracture of left femur, initial encounter for closed fracture (principal); M31.6 Other giant cell arteritis; I10 Essential (primary) hypertension; Z20.822 Contact with and (suspected) exposure to COVID-19; Y92.73 Farm field as the place of occurrence of the external cause; W01.0XXA Fall on same level from slipping, tripping and stumbling without subsequent striking against object, initial encounter
CPT/HCPCS: 27245; 36415; 71045; 73502; 73700; 76000; 80048; 85025; 85610; 85730; 96374; 96375; 96376; 97116; 97162; 97530; 99284; C1713; C1769; C1776; C9803; G0378; J2405; J2704; U0003; U0005

== ENCOUNTER → 2021-11-16 11:02 | Outpatient (CLI) | payer MEDICAID, SELFPAY ==
--- NOTE | 2021-11-16 11:06 | XR_ITS ---
PROCEDURE INFORMATION: Exam: XR Left Femur Exam date and time: 11/16/2021 11:06 AM Age: 66 years old Clinical indication: Condition or disease; Other: Post surgery f/u; Prior surgery; Surgery date: <1 month; Additional info: Lt femur FX TECHNIQUE: Imaging protocol: XR Left femur. Views: 2 views. COMPARISON: CT HIP LT WO CON 10/19/2021 6:24 PM FINDINGS: Bones/joints: Hardware seen in the proximal femur. Near anatomic alignment. No complicating features. Soft tissues: Postsurgical changes seen in the soft tissues. IMPRESSION: Expected postsurgical findings
== END ==
PROVIDERS: PCP General Practice; Visit Provider Orthopaedic Surgery
DX: S72.002A Fracture of unspecified part of neck of left femur, initial encounter for closed fracture (principal)
CPT/HCPCS: 73552

== ENCOUNTER → 2022-01-04 10:07 | Outpatient (CLI) | payer MEDICAID, SELFPAY ==
--- NOTE | 2022-01-04 10:11 | XR_ITS ---
FINAL REPORT CLINICAL HISTORY: left femur fx FINDINGS: LEFT FEMUR 2 views were obtained. There is an intertrochanteric fracture with no evidence of dislocation. There are postoperative changes from ORIF. There is no evidence of complication. There is no soft tissue abnormality. IMPRESSION: Postoperative changes with no evidence of complication or dislocation. Reviewed, Interpreted and Dictated by Corona Read III, MD Transcribed by Marilee Mg Authenticated by Corona Read III, MD on 01/04/2022 11:40:47 AM [facility]
== END ==
PROVIDERS: PCP General Practice; Visit Provider Orthopaedic Surgery
DX: S72.002A Fracture of unspecified part of neck of left femur, initial encounter for closed fracture (principal)
CPT/HCPCS: 73552

== ENCOUNTER → 2022-02-22 09:51 | Outpatient (CLI) | payer MEDICAID, SELFPAY ==
--- NOTE | 2022-02-22 10:03 | XR_ITS ---
FINAL REPORT CLINICAL HISTORY: gamma nail, pulling in back of leg FINDINGS: LEFT HIP Two views of the left hip including an AP pelvis demonstrate a subacute or chronic intertrochanteric fracture with postoperative changes of ORIF. There are mild degenerative changes of both hips. The visualized bony structures are well aligned. No soft tissue abnormality is seen. IMPRESSION: Subacute or chronic intertrochanteric fracture with postoperative changes of ORIF. Mild degenerative change of both hips. Reviewed, Interpreted and Dictated by Corona Read III, MD Transcribed by Marilee Mg Authenticated by Corona Read III, MD on 02/22/2022 11:34:40 AM [facility]
== END ==
PROVIDERS: PCP General Practice; Visit Provider Orthopaedic Surgery
DX: S72.002A Fracture of unspecified part of neck of left femur, initial encounter for closed fracture (principal)
CPT/HCPCS: 73502

== ENCOUNTER → 2022-05-17 12:31 | Outpatient (CLI) | payer MEDICAID, SELFPAY ==
--- NOTE | 2022-05-17 12:35 | XR_ITS ---
FINAL REPORT CLINICAL HISTORY: lt hip gamma nail in Sep 2021 COMPARISON: February 22, 2022 FINDINGS: LEFT HIP: Two views of the left hip with an AP pelvis demonstrate no acute fracture or dislocation. There are azfo-ea-[id number] degenerative changes of the bilateral hips. There are [id number] degenerative changes of the lower lumbar spine. The visualized bony structures are well aligned. No soft tissue abnormality is seen. There are postoperative changes of the proximal left femur. IMPRESSION: Postoperative changes with no acute bony abnormality. Reviewed, Interpreted and Dictated by Corona Read III, MD Transcribed by Toya Cid Authenticated and [facility]
== END ==
PROVIDERS: PCP General Practice; Visit Provider Orthopaedic Surgery
DX: S72.002A Fracture of unspecified part of neck of left femur, initial encounter for closed fracture (principal)
CPT/HCPCS: 73502

== ENCOUNTER → 2023-02-27 10:15 | Outpatient (CLI) | payer MEDICARE, MEDICAID, SELFPAY ==
--- NOTE | 2023-02-27 10:21 | MR_ITS ---
FINAL REPORT CLINICAL HISTORY: HEADACHE. HISTORY ALEXIS MALFORMATION SURGERY 2002. HEADACHE, DIZZINESS, AND BLURRED VISION FINDINGS: Multiplanar MR imaging of the brain was performed without contrast. There is no evidence of intracranial hemorrhage or mass. The ventricular size is normal. There are postoperative changes from occipital craniectomy. There is no evidence of Chiari malformation. There is no evidence of shift of the midline structures. No abnormal extra-axial fluid collection is identified. The posterior fossa and brainstem have an unremarkable appearance. No area of abnormal restricted diffusion is identified. Normal major vessel vascular flow voids are seen. IMPRESSION: No acute intracranial abnormality. Postoperative changes without evidence of Chiari malformation. Reviewed, Interpreted and Dictated by Corona Read III, MD Transcribed by Kinjal Grace Authenticated and [facility]
== END ==
LOC: RAD 10:15
PROVIDERS: PCP General Practice; Visit Provider Nurse Practitioner Family
DX: R51.9 Headache, unspecified (principal)
CPT/HCPCS: 70551

== ENCOUNTER 2025-01-17 09:01 | Outpatient (CLI) | payer MEDICARE, SELFPAY ==
--- NOTE | 2025-01-17 09:03 | US_ITS ---
FINAL REPORT CLINICAL HISTORY: recurrent hypoglycemia COMPARISON: None FINDINGS: Sonographic images of the right upper quadrant were obtained. The pancreas is partially obscured.The liver has an unremarkable appearance.The gallbladder appears normal without evidence of gallstones.There is no evidence of biliary ductal dilatation.The common duct measures 3 mm. Limited images of the right kidney are unremarkable. IMPRESSION: Unremarkable right upper quadrant ultrasound. Reviewed, Interpreted and Dictated by Shawn Cueva MD Transcribed by Yvette Ramos Authenticated and . [facility]
--- NOTE | 2025-01-17 09:03 | NM_ITS ---
FINAL REPORT TECHNIQUE: Sequential anterior images were obtained after the ingestion of 2 whole eggs, 2 pieces of toast, and water radiolabeled with 0.54 mCi technetium 99M sulfur colloid. CLINICAL HISTORY: RECURRENT SEVERE HYPOGLYCEMIA. EARLY SATIETY 9:25AM 0.54 MCI TC SULFUR COLLOID INJ INTO 2 EGGS, 2 PC OF TOAST AND WATER FINDINGS: GASTRIC EMPTYING SCAN Static images show normal emptying of the stomach into the small bowel. Based on the time activity curve, the estimated half-emptying time is 38 minutes. IMPRESSION: Normal gastric emptying study. Reviewed, Interpreted and Dictated by Shawn Cueva MD Transcribed by Sydney Burgos Authenticated and [facility]
[2025-01-17] MEDS: TC99M SULF.COLLOID;1 DOSE (UP TO 20 MCI) IV (09:31)
== END 2025-01-17 23:59 | disposition home or self-care (01) ==
PROVIDERS: PCP Nurse Practitioner Family; Visit Provider Nurse Practitioner Family
DX: R68.81 Early satiety (principal); E16.1 Other hypoglycemia
CPT/HCPCS: 76705; 78264; A9541